=== PATIENT | female | born 1980 | race Caucasian/White ===

== ENCOUNTER → 2018-04-16 | Outpatient (CLI) | payer OTHER | END | disposition home or self-care (01) | LOC: CVU 11:00 | PROVIDERS: ATTEND Internal Medicine Hematology & Oncology | DX: C50.812 Malignant neoplasm of overlapping sites of left female breast (principal) | CPT/HCPCS: 93306 ==

== ENCOUNTER 2018-08-24 07:44 | Outpatient (CLI) | payer OTHER ==
[2018-08-24] MEDS ORDERED: LIDOCAINE 1%, 20ML ONE (08:30)
[2018-08-24] MEDS ORDERED: SODIUM BICARBONATE 4.0%, 5ML ONE (08:30)
[2018-08-24] MEDS ORDERED: LIDOCAINE 1%-EPI 1:100K, 20ML ONE (08:30)
== END 2018-08-24 23:59 | disposition home or self-care (01) ==
LOC: CFH 07:44
PROVIDERS: ATTEND Surgery
DX: C50.812 Malignant neoplasm of overlapping sites of left female breast (principal)
CPT/HCPCS: 19285; 76641; 77065; J3490

== ENCOUNTER → 2018-08-29 | Outpatient (CLI) | payer OTHER ==
[~2018-08-29] MED LIST: GADOBUTROL 7.5 MMOL/7.5 ML PFS ONE
== END | disposition home or self-care (01) ==
LOC: CFH 10:13
PROVIDERS: ATTEND Surgery
DX: C50.812 Malignant neoplasm of overlapping sites of left female breast (principal)
CPT/HCPCS: A9585; C8908; C8937

== ENCOUNTER → 2019-04-16 | Outpatient (CLI) | payer OTHER | END | disposition home or self-care (01) | LOC: CFH 15:16 | PROVIDERS: ATTEND Internal Medicine Hematology & Oncology | DX: Z85.3 Personal history of malignant neoplasm of breast (principal); Z90.13 Acquired absence of bilateral breasts and nipples ==